=== PATIENT | female | born 1955 | race Hispanic/Latino ===

== ENCOUNTER 2020-02-12 14:59 | Outpatient (CLI) | payer MEDICARE | END 2020-02-12 15:00 | disposition home or self-care (01) | LOC: LABHHL 14:59 | PROVIDERS: ATTEND Surgery | DX: N60.02 Solitary cyst of left breast (principal) | CPT/HCPCS: 88112; 88305 ==

== ENCOUNTER 2020-02-23 11:11 | Outpatient (CLI) | payer MEDICARE ==
--- NOTE | 2020-02-23 12:14 | Ultrasound Report ---
EXAMINATION: Left Limited Breast Ultrasound, 02/23/2020 INDICATION: ABNORMAL MAMMO. Patient presents for further evaluation of a nodular density in the left breast seen on recent mammogram. COMPARISON: Prior mammogram 02/12/2020 FINDINGS: Targeted ultrasound evaluation was performed of the area of interest. Likely corresponding with the nodular density seen on recent mammogram, there is an oval circumscribed hypoechoic mass in the left breast 2:00 position located 3 cm from the nipple measuring up to 3 x 2 x 3 mm. No internal vascularity is demonstrated. There is increased through transmission. IMPRESSION: 1. An oval circumscribed hypoechoic mass in the 2:00 left breast likely corresponds with the nodular density seen on recent mammogram. This is considered probably benign, recommend left diagnostic mammo gram and left breast ultrasound in 6 months to ensure stability. Follow up recommendation: Short term follow up in 6 months. BI-RADS Category 3: Probably Benign. Followup in 6 months. Signer Name: Gill Alvarez MD Signed: 02/23/2020 12:10 PM Workstation Name: [email or web address]
== END 2020-02-23 11:12 | disposition home or self-care (01) ==
LOC: SPVWC 11:11
PROVIDERS: ATTEND Surgery
DX: R92.8 Other abnormal and inconclusive findings on diagnostic imaging of breast (principal)

== ENCOUNTER → 2020-08-11 | Outpatient (CLI) | payer MEDICARE ==
--- NOTE | 2020-08-15 08:59 | Mammography Report ---
DIGITAL DIAGNOSTIC MAMMOGRAM WITH CAD , 08/11/2020 CLINICAL INFORMATION / INDICATION: 6 month follow-up mammogram TECHNIQUE: Digital left mammographic imaging was performed. This examination was interpreted with the benefit of Computer-aided Detection analysis. COMPARISON: 02/05/2020, 02/12/2020 FINDINGS: Breast Density: The breasts are heterogeneously dense, which may obscure small masses. Recently noted nodular density in the upper outer quadrant of the left breast persists but appears sl ightly less prominent. The remainder of the breast is unchanged and without significant abnormality. IMPRESSION: Previously noted nodular density in the left breast upper outer quadrant is stable to sli ghtly less prominent in appearance. Patient is scheduled to return for left breast ultrasound. There was no technologist development available at the time of the mammogram appointment. Follow up recommendation: Left breast ultrasound BI-RADS Category 0: Incomplete. Needs additional imaging evaluation and/or prior mammograms for rafi redman. A "normal" or negative report should not discourage follow up or biopsy of a clinically significant f inding. A written summary of these findings will be mailed to the patient. The patient will be entered into a mammography reporting system which will generate a reminder letter for the patient's next appointmen t at the appropriate interval. According to the [employer], yearly mammograms are recommended starting at age 40 and continuing as long as a woman is in good health. Breast MRI is recommended for women with an elizabeth roximately 20-25% or greater lifetime risk of breast cancer, including women with a strong family his tory of breast or ovarian cancer and women who have been treated for Hodgkin's disease. Signer Name: Akosua Green MD Signed: 08/15/2020 8:55 AM Workstation Name: [employer]
== END | disposition home or self-care (01) ==
LOC: SPVWC 08:51
PROVIDERS: ATTEND Surgery
DX: N63.21 Unspecified lump in the left breast, upper outer quadrant (principal)

== ENCOUNTER 2020-09-14 13:31 | Outpatient (CLI) | payer MEDICARE ==
--- NOTE | 2020-09-14 14:17 | Ultrasound Report ---
ULTRASOUND BREAST LEFT LIMITED, 09/14/2020 CLINICAL INFORMATION / INDICATION: ABNORMAL MAMMOGRAM. TECHNIQUE: Targeted ultrasound evaluation was performed of the area of interest. COMPARISON: Prior left breast ultrasound 02/23/2020, recent diagnostic mammogram 08/11/2020 FINDINGS: Sonographic evaluation of the upper outer quadrant of the left breast reveals no cystic or solid mass . Previously identified benign-appearing hypoechoic mass in the 2:00 position on the 02/23/2020 ultras ound has resolved in the interim. IMPRESSION: No sonographic evidence of malignancy. Follow up recommendation: Resumption of annual screening mammography. BI-RADS Category 2: Benign. A normal or "negative" report should not preclude biopsy or follow-up of a clinically suspicious find ing. Signer Name: Akosua Green MD Signed: 09/14/2020 2:13 PM Workstation Name: [employer]
== END 2020-09-14 13:32 | disposition home or self-care (01) ==
LOC: SPVWC 13:31
PROVIDERS: ATTEND Surgery
DX: R92.8 Other abnormal and inconclusive findings on diagnostic imaging of breast (principal)